=== PATIENT | male | born 1940 | race Caucasian/White ===

== ENCOUNTER → 2018-01-13 08:59 | Outpatient (CLI) | payer MEDICARE, SELFPAY ==
--- NOTE | 2018-01-13 15:45 | NEURO ---
NCS and/or EMG Patient Report Ordering Doctor: Josue Romeo DATE OF SERVICE: 01/13/18 Joshua Gamez is a 77-year-old male presents for electrodiagnostic testing of the upper limbs. He has chief complaint of numbness and tingling in both hands. Electrodiagnostic findings: Median motor nerve demonstrates prolonged distal latency bilaterally with normal amplitude and reduced conduction velocity. Normal ulnar motor response bilaterally F waves are within normal limits. Prolonged median sensory latency is noted bilaterally. Prolonged ulnar sensory latency noted bilaterally. On needle EMG, all muscles tested showed no evidence of denervation with normal motor unit action potentials. Electrodiagnostic impression: This is an abnormal study in the upper limbs. 1. 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 This is consistent with a moderate left carpal tunnel syndrome and an advanced right carpal tunnel syndrome 2. 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 3. No EMG evidence for cervical radiculopathy. If there are any further questions, please not hesitate to contact me.
== END ==
PROVIDERS: Family Provider Family Medicine; PCP Family Medicine; Visit Provider Family Medicine
DX: G56.03 Carpal tunnel syndrome, bilateral upper limbs (principal)
CPT/HCPCS: 95886; 95912